=== PATIENT | male | born 1975 | race Caucasian/White ===

== ENCOUNTER 2019-01-09 17:34 | Emergency (ER) | payer MEDICAID, OTHER ==
[~2019-01-09] VITALS: Ht 180.3 cm; Wt 79.5 kg
[~2019-01-09 17:34] MED LIST: AMOX-580 PO; BACI1PAC7 TP; HYDR-4353 PO; HYDR12.522 PO; NO HOME MEDS
[2019-01-09 18:09] VITALS: BP 152/112
== END 2019-01-09 22:37 | disposition home or self-care (01) ==
LOC: ER 17:35
DX: S01.511D Laceration without foreign body of lip, subsequent encounter (principal); Z79.899 Other long term (current) drug therapy; W54.0XXD Bitten by dog, subsequent encounter
CPT/HCPCS: 99281

== ENCOUNTER 2019-12-13 02:54 | Inpatient (IN) | payer MEDICAID, OTHER ==
[2019-12-13] VITALS (17 sets, daily range): BP systolic 124–173; BP diastolic 83–115
[~2019-12-13] VITALS: Ht 177.8 cm; Wt 81.2 kg
[~2019-12-13 02:54] MED LIST changes: -AMOX-580 PO; -BACI1PAC7 TP; -HYDR-4353 PO
[2019-12-13] MEDS ORDERED: morphine 4 MG/ML inj SYRINge IV ONE (03:10)
[2019-12-13 03:13] LABS: BASOPHILS % (AUTO) 0.6 % (0-1); EOSINOPHILS # (AUTO) 0.1 X10'3 (0-0.9); EOSINOPHILS % (AUTO) 1.5 % (0-6); HEMATOCRIT 39.6 % (42.0-52.0); LYMPHOCYTES % (AUTO) 16.5 % (21-51); MEAN CORPUSCULAR HEMOGLOBIN 30.3 PG (27.0-31.0); MEAN CORPUSCULAR HGB CONC 32.8 g/dL (33.0-36.5); MEAN CORPUSCULAR VOLUME 92.4 FL (78-98); MONOCYTES # (AUTO) 0.4 X10'3 (0-0.9); MONOCYTES % (AUTO) 7.8 % (2-12); NEUTROPHILS # (AUTO) 4.2 X10'3 (1.8-7.7); NEUTROPHILS % (AUTO) 73.6 % (42-75); PLATELET COUNT 176 X10'3 (140-440); RED BLOOD COUNT 4.28 X10'6 (4.70-6.10); RED CELL DISTRIBUTION WIDTH 14.2 % (11.5-14.5); WHITE BLOOD COUNT 5.8 X10'3 (4.5-11.0)
[2019-12-13] MEDS ORDERED: LORazepam 2 mg/ml vial IV ONE (03:25)
[2019-12-13 03:31] LABS: ALANINE AMINOTRANSFERASE 52 U/L (12-78); ALBUMIN 3.4 G/DL (3.4-5.0); ALBUMIN/GLOBULIN RATIO 1.1 (1.1-1.5); ALKALINE PHOSPHATASE 67 IU/L (46-116); ANION GAP 11 (8-16); ASPARTATE AMINO TRANSFERASE 80 U/L (10-37); BILIRUBIN,TOTAL 0.3 MG/DL (0.1-1.0); BLOOD UREA NITROGEN 28 MG/DL (7-18); BUN/CREATININE RATIO 16.4 (5.4-32.0); CALCIUM 8.1 MG/DL (8.5-10.1); CHLORIDE 108 MMOL/L (99-107); CREATININE 1.71 MG/DL (0.60-1.10); GLUCOSE 158 MG/DL (70-104); POTASSIUM 4.2 MMOL/L (3.5-5.1); SODIUM 143 MMOL/L (135-145); TOTAL CARBON DIOXIDE 24.4 MMOL/L (24-32); TOTAL PROTEIN 6.4 G/DL (6.4-8.2); eGFR 44 ML/MIN
[2019-12-13] MEDS ORDERED: heparin 10,000 units/1 ML INJ IV PRN (03:40)
[2019-12-13] MEDS ORDERED: heparin 10,000 units/1 ML INJ IV ONE (03:40)
[2019-12-13] MEDS: heparin 25,000 UNIT/250ml bag 250 ML IV SCH ×2 (04:19→11:55)
[2019-12-13] MEDS ORDERED: mag hydrox/Alum hydrox/simeth 30ml oral suspension PO PRN (04:20)
[2019-12-13] MEDS ORDERED: LORazepam 2 mg/ml vial IV PRN (04:20)
[2019-12-13] MEDS ORDERED: magnesium hydroxide 30ml (MOM) UD suspension PO PRN (04:20)
[2019-12-13] MEDS ORDERED: ondansetron/PF 4mg/2ml inj IV PRN (04:20)
[2019-12-13] MEDS ORDERED: acetaminophen 325mg tablet PO PRN ×2 (04:20→15:35)
[2019-12-13] MEDS ORDERED: morphine 2 MG/ML inj. syringe IV PRN (04:20)
[2019-12-13 04:31] LABS: PARTIAL THROMBOPLASTIN TIME 27 SECONDS (22-32)
--- NOTE | 2019-12-13 04:35 | NUR ---
Page sent to Dr. Field regarding order for NS@100 since patient's BNP was over 5500
[2019-12-13] MEDS ORDERED: hydrALAZINE 20mg/ml inj. IV PRN ×3 (05:05→20:20)
--- NOTE | 2019-12-13 05:06 | NUR ---
Patient in room ED 3. I have received report from Chante suarez Rn in the Er and had the opportunity to ask questions and will assume patient care upon arrival to the unit. Addendum: 12/13/19 at 0507 by Jimena Javier RN Amended: Links added.
--- NOTE | 2019-12-13 05:21 | NUR ---
pt arrived to the unit and set up in the room.
--- NOTE | 2019-12-13 05:56 | NUR ---
pt vitals done heparin drip contining and pt comfortable in the bed,
--- NOTE | 2019-12-13 06:28 | NUR ---
Problems reprioritized. Patient report given, questions answered & plan of care reviewed with Yuriy Pacheco. Addendum: 12/13/19 at 0629 by Jimena Javier RN Amended: Links added.
--- NOTE | 2019-12-13 07:54 | NUR ---
Page Sent PAGER ID: [phone] MESSAGE: [phone] JOSEPH- CRITICAL TROP. 97.20 FROM .14 NO CHEST PAIN. HR 75 BP 142/115. THANK YOU. ANA BOWMAN 2008
[2019-12-13] MEDS ORDERED: carVEDilol 3.125mg tablet PO SCH (08:00)
[2019-12-13] MEDS ORDERED: aspirin 81mg tablet.DR PO SCH (08:00)
[2019-12-13] MEDS ORDERED: atorvastatin 20mg tablet PO SCH (08:00)
--- NOTE | 2019-12-13 09:10 | NUR ---
DR. YANG PAGED: PAGER ID: [phone] MESSAGE: [phone]: JOSEPH - 3HR trop 97.2, up from 0.14. pt denies CP, 12 lead EKG unchanged, 6HR trop being drawn now. nurse Shea [phone]
[2019-12-13] MEDS ORDERED: atorvastatin 20mg tablet PO ONE (09:35)
[2019-12-13 10:04] LABS: URINE AMPHETAMINE SCREEN POSITIVE (Neg); URINE BARBITUATE SCREEN NEGATIVE (Neg); URINE BENZODIAZEPINES SCREEN NEGATIVE (Neg); URINE CANNABINOID SCREEN NEGATIVE (Neg); URINE COCAINE SCREEN NEGATIVE (Neg); URINE METHADONE SCREEN NEGATIVE (Neg); URINE OPIATE SCREEN POSITIVE (Neg); URINE PHENCYCLIDINE SCREEN NEGATIVE (Neg)
[2019-12-13] MEDS: tirofiban 5mg in NS 100mL 100 ML IV SCH ×3 (10:05→19:31)
[2019-12-13] MEDS: normal saline 1000ml 1,000 ML IV SCH ×2 (10:17→15:42)
--- NOTE | 2019-12-13 10:25 | NUR ---
Dr. YANG PAGED: PAGER ID: [phone] MESSAGE: [phone]: JAKE CUELLAR 6HR TROP 137.29, JJ already called, coming to see pt now. will inform him of recent trop as well. on hep gtt and aggrastat. nurse Shea [phone]
[2019-12-13] MEDS ORDERED: nitroGLYCERIN-Tridil 50MG/D5W 250 ML IV ONE ×2 (12:42→15:15)
[2019-12-13] MEDS ORDERED: midazolam 2 mg/2 ml injection ONE (12:42)
[2019-12-13] MEDS ORDERED: heparin 1,000unit/ml 10ml vial 10 ML ONE (12:42)
[2019-12-13] MEDS ORDERED: verapamil 2.5 mg/ml inj IV ONE (12:42)
[2019-12-13] MEDS ORDERED: LIDOcaine 1% (10mg/ml)w/preservative injection 20ml MDV ONE (12:42)
[2019-12-13] MEDS ORDERED: iohexol 350 MG/ML 50ML vial IV ONE (12:42)
[2019-12-13] MEDS ORDERED: fentaNYL/PF 50MCG/1 ML 2ML syringe ONE (12:42)
[2019-12-13] MEDS ORDERED: iohexol 350MG/ML 100ml bottle IV ONE (12:43)
[2019-12-13] MEDS ORDERED: iohexol 350 MG/1 ML 200ml bottle ONE (13:43)
[2019-12-13] MEDS ORDERED: clopidogrel 300mg tablet ONE (13:52)
[2019-12-13] MEDS ORDERED: tirofiban 5mg in NS 100mL 100 ML IV ONE (14:20)
[2019-12-13] MEDS ORDERED: nitroGLYCERIN-Tridil 50MG/D5W 250 ML IV PRN ×2 (15:20→22:05)
--- NOTE | 2019-12-13 15:20 | NUR ---
Patient arrived to the floor from finishing lab technician. Tamera BOWMAN settled patient into bed. Site stable, Dr. Tavera notified of HTN Addendum: 12/13/19 at 1650 by Genesis Hampton RN New orders received for IV nitroglycerin
[2019-12-13] MEDS ORDERED: cyclobenzaprine 10mg tablet PO PRN (15:35)
[2019-12-13] MEDS ORDERED: OXAZEpam 15mg capsule PO PRN (15:35)
[2019-12-13] MEDS ORDERED: proCHLORperazine 10 MG/2 ml inj IV PRN (15:35)
[2019-12-13] MEDS ORDERED: aspirin 81mg tab.chew PO ONE (15:40)
[2019-12-13] MEDS ORDERED: HYDROcodone/acetaminophen 10/325mg tab PO PRN (15:40)
--- NOTE | 2019-12-13 16:49 | NUR ---
Critically high Troponin is 177.87 post cath
[2019-12-13] MEDS: DOBUTamine-DoBUTrex 500mg/D5W 250 ML IV SCH (17:05)
--- NOTE | 2019-12-13 18:32 | NUR ---
Problems reprioritized. Patient report given, questions answered & plan of care reviewed with Adithya BOWMAN.
[2019-12-13] MEDS ORDERED: carvedilol 6.25mg tablet PO SCH (20:00)
--- NOTE | 2019-12-13 20:27 | NUR ---
Spoke to Dr. Lin new orders received to stop heparin drip, check ACT when it is less then 125 may pull sheath manual hold for 20 min until hemostasis achieved then apply FemoStop for 7 hours, protocol to be followed regarding FemoStop. Please leave dobutamine infusing at this time at 3mcg/kg/min for tonight due to decreased EF.
[2019-12-13] MEDS: HYDROcodone/acetaminophen 10/325mg tab PO PRN (21:05)
[2019-12-13] MEDS: lisinopril 10 MG tablet PO SCH (21:06)
[2019-12-13] MEDS: docusate sod 100mg capsule PO SCH (21:06)
[2019-12-13] MEDS: morphine 2 MG/ML inj. syringe IV PRN (21:28)
[2019-12-14] VITALS (18 sets, daily range): BP systolic 102–157; BP diastolic 51–84
[2019-12-14] MEDS: morphine 2 MG/ML inj. syringe IV PRN (01:12)
[2019-12-14] MEDS ORDERED: carVEDilol 12.5mg tablet PO ONE (01:35)
--- NOTE | 2019-12-14 01:40 | NUR ---
act was 114. pulled sheath at 01:13 @ right groin. manual pressure held x 20 minutes, femstop placed with 70 mmhg, site is cdi, faint echimosis, small sign of small hematoma but mostly disappated with manual pressure. will check frequently. pedal pulses confirmed with doppler- no numbness or tingling. vss, patient was pre-medicated for procedure - no complications, patient is without complaints
[2019-12-14] MEDS: tirofiban 5mg in NS 100mL 100 ML IV SCH ×2 (03:53→12:13)
[2019-12-14] MEDS ORDERED: normal saline 1000ml 1,000 ML IV SCH (04:00)
[2019-12-14 05:34] LABS: BASOPHILS % (AUTO) 0.7 % (0-1); EOSINOPHILS # (AUTO) 0.1 X10'3 (0-0.9); EOSINOPHILS % (AUTO) 1.4 % (0-6); HEMATOCRIT 37.7 % (42.0-52.0); HEMOGLOBIN 12.4 g/dl (14.0-17.9); LYMPHOCYTES # (AUTO) 1.1 X10'3 (1.1-4.8); LYMPHOCYTES % (AUTO) 21.1 % (21-51); MEAN CORPUSCULAR HEMOGLOBIN 30.5 PG (27.0-31.0); MEAN CORPUSCULAR HGB CONC 32.8 g/dL (33.0-36.5); MEAN PLATELET VOLUME 9.1 FL (7.4-10.4); MONOCYTES # (AUTO) 0.5 X10'3 (0-0.9); MONOCYTES % (AUTO) 10.4 % (2-12); NEUTROPHILS # (AUTO) 3.3 X10'3 (1.8-7.7); NEUTROPHILS % (AUTO) 66.4 % (42-75); PLATELET COUNT 153 X10'3 (140-440); RED BLOOD COUNT 4.06 X10'6 (4.70-6.10); RED CELL DISTRIBUTION WIDTH 14.1 % (11.5-14.5)
[2019-12-14 05:52] LABS: ALBUMIN 2.8 G/DL (3.4-5.0); ANION GAP 7 (8-16); BLOOD UREA NITROGEN 17 MG/DL (7-18); BUN/CREATININE RATIO 14.2 (5.4-32.0); CALCIUM 7.8 MG/DL (8.5-10.1); CHLORIDE 107 MMOL/L (99-107); CHOLESTEROL 113 MG/DL (0-200); GLUCOSE 84 MG/DL (70-104); POTASSIUM 4.5 MMOL/L (3.5-5.1); SODIUM 140 MMOL/L (135-145); TOTAL CARBON DIOXIDE 25.8 MMOL/L (24-32); eGFR 65 ML/MIN
[2019-12-14 05:53] LABS: CHOL/HDL RATIO 2.4 (0.00-4.99); HDL CHOLESTEROL 47 MG/DL (35-60); LDL CHOLESTEROL 57 MG/DL (50-100); TRIGLYCERIDES 54 MG/DL (20-135)
--- NOTE | 2019-12-14 06:00 | NUR ---
Patient in room ICU 2043. I have received report from Adithya BOWMAN and had the opportunity to ask questions and assume patient care.
[2019-12-14] MEDS: atorvastatin 20mg tablet PO SCH (08:52)
[2019-12-14] MEDS: docusate sod 100mg capsule PO SCH ×2 (08:52→20:00)
[2019-12-14] MEDS: clopidogrel 75mg tablet PO SCH (08:52)
[2019-12-14] MEDS: lisinopril 10 MG tablet PO SCH ×2 (08:53→20:00)
[2019-12-14] MEDS: aspirin 325mg tablet PO SCH (08:53)
[2019-12-14] MEDS: spironolactone 25 MG tablet PO SCH (08:53)
[2019-12-14] MEDS: carvedilol 6.25mg tablet PO SCH ×2 (08:54→20:01)
[2019-12-14] MEDS: HYDROcodone/acetaminophen 10/325mg tab PO PRN (08:55)
--- NOTE | 2019-12-14 09:30 | NUR ---
Dr. Lin rounded, states okay to transfer to PCU today, okay to continue Dobutamine at 3 mcg, [employer], stop NS, labs order for tomorrow.
--- NOTE | 2019-12-14 10:39 | NUR ---
Patient's Tameka called, patient gave permission to speak to her. Discussed patient's status with her and she is going to call other family and figure out when she is going to come see him.
[2019-12-14] MEDS ORDERED: lisinopril 10 MG tablet PO SCH (12:00)
--- NOTE | 2019-12-14 13:15 | NUR ---
Patient in room ICU 2043. I have received report from GRACIE VILLA and had the opportunity to ask questions and assume patient care.
--- NOTE | 2019-12-14 13:17 | NUR ---
Gave report to Karuna BOWMAN at this time, patient to go to room 309.
--- NOTE | 2019-12-14 13:35 | NUR ---
Patient received by ACCMilo Beckman to rom 309.
--- NOTE | 2019-12-14 13:54 | NUR ---
Cardiac diet education: lipid panel all within normal limits. Pt uses meth regular. Admitted with NSTEMI, likely r/t meth abuse. Cardiac ed not indicated as NSTEMI not diet related. Addendum: 12/14/19 at [address] Amended: Links added.
--- NOTE | 2019-12-14 14:00 | NUR ---
RECEIVED PT INTO ROOM 309,ORIENTED TO SURROUNDINGS,ASSESSMENT COMPLETE,AGREE WITH PREVIOUS GROUND HAND,RIGHT GROIN SITE,WITH SMALL AMOUNT CIRCLED BRUISING,NO HEMATOMA ,PEDAL PULSES PRESENT TO ble CONT ON DOBUTAMINE GTT,PT DENIES PAIN AWARE TO CALL FOR ASSIST OOB
--- NOTE | 2019-12-14 18:11 | NUR ---
Patient in room MED 309. I have received report from VALENTINE BOWMAN and had the opportunity to ask questions and assume patient care.
--- NOTE | 2019-12-14 18:30 | NUR ---
Problems reprioritized. Patient report given, questions answered & plan of care reviewed with GRACIE CRESPO.
[2019-12-14] MEDS: heparin, porcine 5000 units/ml vial SQ SCH (20:01)
[2019-12-15] VITALS: BP 110/73
[2019-12-15 02:00] VITALS: BP 105/75
[2019-12-15] MEDS: DOBUTamine-DoBUTrex 500mg/D5W 250 ML IV SCH (02:28)
[2019-12-15 04:00] VITALS: BP 112/83
--- NOTE | 2019-12-15 06:11 | NUR ---
Problems reprioritized. Patient report given, questions answered & plan of care reviewed with VALENTINE BOWMAN.
--- NOTE | 2019-12-15 06:15 | NUR ---
Patient in room MED 309. I have received report from GRACIE CRESPO and had the opportunity to ask questions and assume patient care.
[2019-12-15 06:24] LABS: BASOPHILS % (AUTO) 0.4 % (0-1); EOSINOPHILS # (AUTO) 0.1 X10'3 (0-0.9); EOSINOPHILS % (AUTO) 2.6 % (0-6); HEMATOCRIT 39.4 % (42.0-52.0); HEMOGLOBIN 12.9 g/dl (14.0-17.9); LYMPHOCYTES # (AUTO) 1.2 X10'3 (1.1-4.8); MEAN CORPUSCULAR HEMOGLOBIN 30.7 PG (27.0-31.0); MEAN CORPUSCULAR HGB CONC 32.6 g/dL (33.0-36.5); MEAN PLATELET VOLUME 9.1 FL (7.4-10.4); MONOCYTES # (AUTO) 0.6 X10'3 (0-0.9); MONOCYTES % (AUTO) 10.4 % (2-12); NEUTROPHILS # (AUTO) 3.7 X10'3 (1.8-7.7); NEUTROPHILS % (AUTO) 65.6 % (42-75); PLATELET COUNT 135 X10'3 (140-440); RED BLOOD COUNT 4.19 X10'6 (4.70-6.10); WHITE BLOOD COUNT 5.6 X10'3 (4.5-11.0)
[2019-12-15 06:29] LABS: ANION GAP 5 (8-16); BLOOD UREA NITROGEN 18 MG/DL (7-18); BUN/CREATININE RATIO 14.9 (5.4-32.0); CHLORIDE 106 MMOL/L (99-107); CREATININE 1.21 MG/DL (0.60-1.10); GLUCOSE 75 MG/DL (70-104); SODIUM 140 MMOL/L (135-145); TOTAL CARBON DIOXIDE 28.9 MMOL/L (24-32)
[2019-12-15 06:30] LABS: ALBUMIN 2.7 G/DL (3.4-5.0); CALCIUM 8.6 MG/DL (8.5-10.1); eGFR 65 ML/MIN
[2019-12-15 06:36] VITALS: BP 116/82
[2019-12-15] MEDS: carvedilol 6.25mg tablet PO SCH (08:00)
[2019-12-15] MEDS: lisinopril 10 MG tablet PO SCH (08:54)
[2019-12-15] MEDS: clopidogrel 75mg tablet PO SCH (08:54)
[2019-12-15] MEDS: aspirin 325mg tablet PO SCH (08:55)
[2019-12-15] MEDS: spironolactone 25 MG tablet PO SCH (08:55)
[2019-12-15] MEDS: atorvastatin 20mg tablet PO SCH (08:56)
[2019-12-15] MEDS: docusate sod 100mg capsule PO SCH (08:56)
[2019-12-15] MEDS: heparin, porcine 5000 units/ml vial SQ SCH (08:57)
[2019-12-15] MEDS ORDERED: furosemide 40mg/4ml inj IV ONE (10:10)
[2019-12-15 11:00] VITALS: BP 104/62
[2019-12-15] MEDS ORDERED: POTA10TA36 PO (14:16)
[2019-12-15] MEDS ORDERED: CARV6.253 PO (14:16)
[2019-12-15] MEDS ORDERED: LISI10TA4 PO (14:16)
[2019-12-15] MEDS ORDERED: CLOP75TA35 PO (14:16)
[2019-12-15] MEDS ORDERED: FURO-150 PO (14:16)
[2019-12-15] MEDS ORDERED: ASPI-611 PO (14:16)
[2019-12-15] MEDS ORDERED: ATOR20TA66 PO (14:16)
--- NOTE | 2019-12-15 14:45 | NUR ---
reviewed all discharge instructions,prescriptions called into [facility] in [place],info provided pt aware of f/u appt with with 12/22 ,sl dc'd from [facility] ,both sites clear pt provided free bus passes.stated he would be staying with in [facility] and berry picker meds there,dc'd via w/c with all belongings
== END 2019-12-15 15:15 | disposition home or self-care (01) | DRG 174 ==
LOC: ER 02:54 → UNDOADMIN 04:16 → ED HOLD 04:16 → MED 3N 05:31 → ICU 2S 14:49 → MED 3N 14:49 → ICU 2S 12-14 13:45 → MED 3N 12-14 13:45
PROVIDERS: ADMIT Family Medicine; ATTEND Family Medicine
PROC: 4A023N7 Measurement of Cardiac Sampling and Pressure, Left Heart, Percutaneous Approach (ICD-10-PCS; principal; 2019-12-13)
PROC: 02713ZZ Dilation of Coronary Artery, Two Arteries, Percutaneous Approach (ICD-10-PCS; 2019-12-13)
PROC: 02C03ZZ Extirpation of Matter from Coronary Artery, One Artery, Percutaneous Approach (ICD-10-PCS; 2019-12-13)
PROC: B2111ZZ Fluoroscopy of Multiple Coronary Arteries using Low Osmolar Contrast (ICD-10-PCS; 2019-12-13)
PROC: B2151ZZ Fluoroscopy of Left Heart using Low Osmolar Contrast (ICD-10-PCS; 2019-12-13)
DX: I21.4 Non-ST elevation (NSTEMI) myocardial infarction (principal); N17.0 Acute kidney failure with tubular necrosis; I42.7 Cardiomyopathy due to drug and external agent; E78.5 Hyperlipidemia, unspecified; F14.90 Cocaine use, unspecified, uncomplicated; F15.10 Other stimulant abuse, uncomplicated; F17.210 Nicotine dependence, cigarettes, uncomplicated; I10 Essential (primary) hypertension; Z79.82 Long term (current) use of aspirin; Z91.19 Patient's noncompliance with other medical treatment and regimen
CPT/HCPCS: 36415; 71045; 76937; 80048; 80053; 80061; 80305; 82948; 83735; 83880; 84132; 84484; 85025; 85347; 85610; 85730; 87081; 92921; 92924; 93005; 93306; 93458; 96374; 96375; 99152; 99153; 99285; A4620; A6258; C1725; C1751; C1757; C1769; C1894; G0378; J1250; J1644; J1940; J2001; J2060; J2250; J2270; J2405; J3010; J3246; J3490; J7030; Q9967

== ENCOUNTER 2020-03-18 23:01 | Inpatient (IN) | payer MEDICAID ==
[~2020-03-18] VITALS: Ht 180.3 cm; Wt 81.0 kg
[~2020-03-18 23:01] MED LIST changes: +ATOR20TA66 PO; +CARV6.253 PO; +CLOP75TA35 PO; -HYDR12.522 PO; +LISI10TA4 PO; -NO HOME MEDS; +POTA10TA36 PO
[2020-03-18 23:49] LABS: BASOPHILS % (AUTO) 0.8 % (0-1); EOSINOPHILS # (AUTO) 0.1 X10'3 (0-0.9); EOSINOPHILS % (AUTO) 1.4 % (0-6); HEMOGLOBIN 14.4 g/dl (14.0-17.9); LYMPHOCYTES # (AUTO) 1.4 X10'3 (1.1-4.8); LYMPHOCYTES % (AUTO) 25.8 % (21-51); MEAN CORPUSCULAR HGB CONC 32.8 g/dL (33.0-36.5); MEAN CORPUSCULAR VOLUME 91.4 FL (78-98); MEAN PLATELET VOLUME 9.1 FL (7.4-10.4); MONOCYTES # (AUTO) 0.4 X10'3 (0-0.9); MONOCYTES % (AUTO) 7.7 % (2-12); NEUTROPHILS # (AUTO) 3.4 X10'3 (1.8-7.7); NEUTROPHILS % (AUTO) 64.3 % (42-75); PLATELET COUNT 195 X10'3 (140-440); RED BLOOD COUNT 4.81 X10'6 (4.70-6.10); RED CELL DISTRIBUTION WIDTH 15.6 % (11.5-14.5); WHITE BLOOD COUNT 5.2 X10'3 (4.5-11.0)
[2020-03-18 23:54] LABS: ALANINE AMINOTRANSFERASE 73 U/L (12-78); ALBUMIN 3.4 G/DL (3.4-5.0); ALKALINE PHOSPHATASE 78 IU/L (46-116); ANION GAP 6 (8-16); ASPARTATE AMINO TRANSFERASE 116 U/L (10-37); BILIRUBIN,TOTAL 1.9 MG/DL (0.1-1.0); BLOOD UREA NITROGEN 30 MG/DL (7-18); BUN/CREATININE RATIO 18.2 (5.4-32.0); CALCIUM 8.5 MG/DL (8.5-10.1); CHLORIDE 105 MMOL/L (99-107); CREATININE 1.65 MG/DL (0.60-1.10); GLUCOSE 88 MG/DL (70-104); POTASSIUM 4.4 MMOL/L (3.5-5.1); SODIUM 138 MMOL/L (135-145); TOTAL CARBON DIOXIDE 26.9 MMOL/L (24-32); TOTAL PROTEIN 6.9 G/DL (6.4-8.2); eGFR 45 ML/MIN
[2020-03-19] VITALS (7 sets, daily range): BP systolic 111–175; BP diastolic 83–135
[2020-03-19] MEDS ORDERED: nitroGLYCERIN 0.4mg SUBLingual tab SL PRN (00:30)
[2020-03-19] MEDS ORDERED: aspirin 81mg tab.chew PO ONE (00:30)
[2020-03-19] MEDS ORDERED: heparin 10,000 units/1 ML INJ IV ONE ×2 (00:30→00:40)
[2020-03-19] MEDS ORDERED: heparin 10,000 units/1 ML INJ IV PRN (00:30)
[2020-03-19] MEDS ORDERED: FURO20TA4 PO (01:08)
[2020-03-19] MEDS ORDERED: LISI10TA4 PO (01:11)
[2020-03-19] MEDS ORDERED: CLOP75TA35 PO (01:11)
[2020-03-19] MEDS ORDERED: ATOR-2 PO (01:11)
[2020-03-19] MEDS ORDERED: POTA10CA44 PO (01:11)
[2020-03-19] MEDS ORDERED: ASPI-1397 PO (01:11)
[2020-03-19] MEDS ORDERED: CARV12.545 PO (01:11)
[2020-03-19] MEDS: heparin 25,000 UNIT/250ml bag 250 ML IV SCH ×2 (01:21→16:01)
[2020-03-19] MEDS ORDERED: mag hydrox/Alum hydrox/simeth 30ml oral suspension PO PRN (02:00)
[2020-03-19] MEDS ORDERED: magnesium hydroxide 30ml (MOM) UD suspension PO PRN (02:00)
[2020-03-19] MEDS ORDERED: potassium Cl 20 mEq SR tablet PO PRN ×2 (02:00)
[2020-03-19] MEDS ORDERED: potassium CL 10mEq/100ml bag 100 ML IV PRN ×2 (02:00)
[2020-03-19] MEDS ORDERED: ondansetron/PF 4mg/2ml inj IV PRN (02:00)
[2020-03-19] MEDS ORDERED: acetaminophen 325mg tablet PO PRN (02:00)
[2020-03-19] MEDS: furosemide 10 MG/1 ML 10ml inj IV SCH ×3 (02:56→20:02)
--- NOTE | 2020-03-19 04:04 | NUR ---
Notified Dr. Callejas regarding patient's persistent HTN. MD advised to give the am dose of Coreg and Lisinopril right now.
[2020-03-19] MEDS ORDERED: carVEDilol 12.5mg tablet PO SCH (04:10)
[2020-03-19] MEDS ORDERED: lisinopril 10 MG tablet PO SCH (04:10)
[2020-03-19 04:27] LABS: URINE AMPHETAMINE SCREEN POSITIVE (Neg); URINE BARBITUATE SCREEN NEGATIVE (Neg); URINE BENZODIAZEPINES SCREEN NEGATIVE (Neg); URINE CANNABINOID SCREEN NEGATIVE (Neg); URINE COCAINE SCREEN NEGATIVE (Neg); URINE METHADONE SCREEN NEGATIVE (Neg); URINE OPIATE SCREEN NEGATIVE (Neg); URINE PHENCYCLIDINE SCREEN NEGATIVE (Neg)
--- NOTE | 2020-03-19 06:23 | NUR ---
Problems reprioritized. Patient report given, questions answered & plan of care reviewed with Chante BOWMAN.
--- NOTE | 2020-03-19 06:30 | NUR ---
Patient in room MED 315. I have received report from Rebecca BOWMAN and had the opportunity to ask questions and assume patient care.
--- NOTE | 2020-03-19 07:39 | NUR ---
Page for Dr Leal about BP PAGER ID: [phone] MESSAGE: [phone] Oscar Mendiola. BP is 154/116, 157/116 he got coreg 12.5 and lisinopril 10mg at 0400 for BP with no results. Thanks Chante [phone] (126 character message out of a maximum of 240)
[2020-03-19] MEDS: K and/or MAG REPLACEMENT MC SCH ×2 (08:00→20:00)
[2020-03-19] MEDS: atorvastatin 20mg tablet PO SCH (08:17)
[2020-03-19] MEDS: clopidogrel 75mg tablet PO SCH (08:17)
[2020-03-19] MEDS: aspirin 81mg tablet.DR PO SCH (08:17)
[2020-03-19] MEDS ORDERED: hydrALAZINE 20mg/ml inj. IV PRN (09:05)
--- NOTE | 2020-03-19 11:46 | NUR ---
Page to Case management PAGER ID: [phone] MESSAGE: 315 Oscar Mendiola. BP is 154/116, 157/116 he got coreg 12.5 and lisinopril 10mg at 0400 for BP with no results. Thanks Chante [id number] (126 character message out of a maximum of 240) Addendum: 03/19/20 at 1151 by Chante Maciel RN Error sent old page to case management sent correct one after
--- NOTE | 2020-03-19 11:52 | NUR ---
Case management paged per MD request so that pt can be set up with an MD to followup with after d/c since he never got his medications or saw an MD after last discharge.
[2020-03-19 12:00] LABS: CHOL/HDL RATIO 2.4 (0.00-4.99); CHOLESTEROL 115 MG/DL (0-200); HDL CHOLESTEROL 47 MG/DL (35-60); LDL CHOLESTEROL 63 MG/DL (50-100); TRIGLYCERIDES 47 MG/DL (20-135)
--- NOTE | 2020-03-19 18:23 | NUR ---
Problems reprioritized. Patient report given, questions answered & plan of care reviewed with Rebecca RN.
--- NOTE | 2020-03-19 18:23 | NUR ---
Patient in room MED 315. I have received report from Chante BOWMAN and had the opportunity to ask questions and assume patient care.
[2020-03-19] MEDS: carVEDilol 12.5mg tablet PO SCH (20:01)
--- NOTE | 2020-03-19 23:16 | NUR ---
Patients heparin running at 1300 units/hour, decreased by 100 units, CN is aware. Heparin running at 1200 units/hour.
[2020-03-20] MEDS: heparin 25,000 UNIT/250ml bag 250 ML IV SCH (01:41)
[2020-03-20 02:00] VITALS: BP 115/81
[2020-03-20 04:23] LABS: BASOPHILS % (AUTO) 0.7 % (0-1); EOSINOPHILS # (AUTO) 0.1 X10'3 (0-0.9); EOSINOPHILS % (AUTO) 2.6 % (0-6); HEMATOCRIT 41.5 % (42.0-52.0); HEMOGLOBIN 13.7 g/dl (14.0-17.9); LYMPHOCYTES # (AUTO) 0.7 X10'3 (1.1-4.8); LYMPHOCYTES % (AUTO) 13.2 % (21-51); MEAN CORPUSCULAR HEMOGLOBIN 29.9 PG (27.0-31.0); MEAN CORPUSCULAR HGB CONC 33.1 g/dL (33.0-36.5); MEAN CORPUSCULAR VOLUME 90.1 FL (78-98); MEAN PLATELET VOLUME 8.8 FL (7.4-10.4); MONOCYTES # (AUTO) 0.5 X10'3 (0-0.9); MONOCYTES % (AUTO) 8.4 % (2-12); NEUTROPHILS # (AUTO) 4.2 X10'3 (1.8-7.7); NEUTROPHILS % (AUTO) 75.1 % (42-75); PLATELET COUNT 158 X10'3 (140-440); RED CELL DISTRIBUTION WIDTH 15.3 % (11.5-14.5); WHITE BLOOD COUNT 5.7 X10'3 (4.5-11.0)
[2020-03-20 04:36] LABS: ALANINE AMINOTRANSFERASE 78 U/L (12-78); ALBUMIN 2.7 G/DL (3.4-5.0); ALBUMIN/GLOBULIN RATIO 0.9 (1.1-1.5); ALKALINE PHOSPHATASE 64 IU/L (46-116); ANION GAP 6 (8-16); ASPARTATE AMINO TRANSFERASE 107 U/L (10-37); BILIRUBIN,TOTAL 1.6 MG/DL (0.1-1.0); BLOOD UREA NITROGEN 36 MG/DL (7-18); BUN/CREATININE RATIO 23.2 (5.4-32.0); CALCIUM 8.2 MG/DL (8.5-10.1); CHLORIDE 102 MMOL/L (99-107); CREATININE 1.55 MG/DL (0.60-1.10); GLUCOSE 85 MG/DL (70-104); POTASSIUM 3.8 MMOL/L (3.5-5.1); SODIUM 137 MMOL/L (135-145); TOTAL CARBON DIOXIDE 29.2 MMOL/L (24-32); TOTAL PROTEIN 5.7 G/DL (6.4-8.2); eGFR 49 ML/MIN
--- NOTE | 2020-03-20 06:11 | NUR ---
Problems reprioritized. Patient report given, questions answered & plan of care reviewed with Angelita BOWMAN.
--- NOTE | 2020-03-20 06:15 | NUR ---
Patient in room MED 315. I have received report from Rebecca and had the opportunity to ask questions and assume patient care.
[2020-03-20] MEDS: K and/or MAG REPLACEMENT MC SCH (06:56)
[2020-03-20 07:40] VITALS: BP 130/95
[2020-03-20] MEDS ORDERED: lisinopril 20mg tablet PO SCH (08:00)
[2020-03-20] MEDS: atorvastatin 20mg tablet PO SCH (08:02)
[2020-03-20] MEDS: clopidogrel 75mg tablet PO SCH (08:03)
[2020-03-20] MEDS: carVEDilol 12.5mg tablet PO SCH (08:03)
[2020-03-20] MEDS: aspirin 81mg tablet.DR PO SCH (08:03)
[2020-03-20] MEDS: furosemide 10 MG/1 ML 10ml inj IV SCH (08:05)
[2020-03-20 10:15] VITALS: BP 113/72
[2020-03-20 14:01] VITALS: BP 112/78
--- NOTE | 2020-03-20 14:41 | NUR ---
Accompanied Dr Lin in to pts room. He asked pt about his medications and about why he did not follow up with PCP. Pt stated his son threw away the prescription and he was not able to have them filled. MD also discussed his need to quit meth and to have echo repeated in 2 months after seeing PCP. Pt was not very forthcoming and not very willing to want to change his lifestyle.
[2020-03-20] MEDS ORDERED: POTA10CA44 PO (15:15)
[2020-03-20] MEDS ORDERED: CARV12.545 PO (15:15)
[2020-03-20] MEDS ORDERED: LISI10TA4 PO (15:15)
[2020-03-20] MEDS ORDERED: ASPI-1397 PO (15:15)
[2020-03-20] MEDS ORDERED: ATOR-2 PO (15:15)
[2020-03-20] MEDS ORDERED: FURO20TA4 PO (15:15)
[2020-03-20] MEDS ORDERED: ISOS30TA6 PO (15:15)
[2020-03-20] MEDS ORDERED: CLOP75TA35 PO (15:15)
--- NOTE | 2020-03-20 16:29 | NUR ---
Pt has called his friend "Tosha" who did not answer phone. He left a voice message for her x2. No call back. States he has no one else to come and pick him up. Called [employer] [facility] to come and pick him up. When asked where he wanted to be taken, he responded "I don't know. Just take me to the [facility] in [place]". Explained to pt in great detail that he needs to pickers material handlers his meds at [facility] on [place] and that he needs to make an appointment with [facility] to establish a PCP. He stated "Oh yeah, I live 2 houses from there". Explained to him that he needs a repeat echo in [address] Lin. Much encouragement and support given. Pt seems very uninterested and just asks for a sandwich. IV dc'd. Discharge instructions gone over in detail. Pt discharged via [facility] [employer].
== END 2020-03-20 16:28 | disposition home or self-care (01) | DRG 190 ==
LOC: ER 23:02 → ED HOLD 03-19 01:59 → MED 3N 03-19 03:44
PROVIDERS: ADMIT Internal Medicine; ATTEND Family Medicine
DX: I21.A1 Myocardial infarction type 2 (principal); I25.10 Atherosclerotic heart disease of native coronary artery without angina pectoris; I42.0 Dilated cardiomyopathy; I42.7 Cardiomyopathy due to drug and external agent; I50.9 Heart failure, unspecified; T75.89XA Other specified effects of external causes, initial encounter; N18.9 Chronic kidney disease, unspecified; I13.0 Hypertensive heart and chronic kidney disease with heart failure and stage 1 through stage 4 chronic kidney disease, or unspecified chronic kidney disease; I25.2 Old myocardial infarction; Z91.14 Patient's other noncompliance with medication regimen; Z95.5 Presence of coronary angioplasty implant and graft; Z59.0 Homelessness; X58.XXXA Exposure to other specified factors, initial encounter; F10.10 Alcohol abuse, uncomplicated; F15.10 Other stimulant abuse, uncomplicated; F17.200 Nicotine dependence, unspecified, uncomplicated; Y93.89 Activity, other specified; Y92.89 Other specified places as the place of occurrence of the external cause; Y99.8 Other external cause status
CPT/HCPCS: 36415; 71045; 80053; 80061; 80305; 83036; 83880; 84443; 84484; 85025; 85610; 85730; 87081; 93005; 93306; 99285; G0378; J1644; J1940